=== PATIENT | female | born 1960 | race American Indian/Alaskan Native ===

== ENCOUNTER 2017-11-03 16:19 | Emergency (ER) | payer OTHER ==
[2017-11-03 16:42] VITALS: RESP 18
[2017-11-03] MEDS ORDERED: Sodium Chloride 0.9% 1,000 ML IV ONE (16:57)
[2017-11-03] MEDS ORDERED: Sodium Chloride 0.9% 1,000 ML ONE (17:30)
[2017-11-03 17:36] LABS: BASO % 0.5 % (0.0-2.0); EOS # 0.1 K/uL (0.0-0.7); EOS % 1.1 % (0.0-4.0); LYMPH # 1.1 K/uL (1.0-4.3); MEAN CELL VOLUME 74.1 fL (81.0-99.0); MEAN CORPUSCULAR HEMOGLOBIN 23.7 pg (27.0-31.0); MEAN PLATELET VOLUME 10.4 fL (7.2-11.7); MONO # 1.5 K/uL (0.0-0.8); MONO % 17.2 % (0.0-10.0); NEUT % 68.2 % (50.0-75.0); NRBC % 0.5 % (0.0-2.0); RBC 6.29 Mil/uL (3.80-5.20); RED CELL DISTRIBUTION WIDTH 19.2 % (11.5-14.5); WHITE BLOOD COUNT 8.8 K/uL (4.8-10.8)
[2017-11-03 17:37] LABS: HEMOGLOBIN 14.9 g/dL (11.0-16.0)
[2017-11-03 17:39] LABS: SQUAMOUS EPITHIAL 2 /hpf (0-5); URINE BACTERIA RARE (<OCC); URINE BILIRUBIN NEGATIVE (NEGATIVE); URINE CLARITY Clear (Clear); URINE COLOR Yellow (YELLOW); URINE GLUCOSE (UA) NORMAL (Normal); URINE LEUKOCYTE ESTERASE NEG Leu/uL (Negative); URINE PROTEIN 2+ mg/dL (NEGATIVE)
[2017-11-03 17:41] LABS: URINE BLOOD TRACE (NEGATIVE)
[2017-11-03 18:01] LABS: BARBITURATES, UR NEGATIVE (NEGATIVE); BENZODIAZEPINES, UR NEGATIVE (NEGATIVE); PHENCYCLIDINE, UR NEGATIVE (NEGATIVE)
[2017-11-03 18:28] LABS: CALCIUM 8.9 mg/dl (8.6-10.4)
--- NOTE | 2017-11-03 18:29 | C.PDOC ---
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 Patient has been aggressively diuresed by Dr. Pa for stage 4 CHF. In February 2017, cardiac echo showed global hypokinesis, EJF 20%. Time Seen by Provider: 11/03/17 16:52 Chief Complaint (Nursing): Syncope History Per: Patient History/Exam Limitations: no limitations Onset/Duration Of Symptoms: Hrs Current Symptoms Are (Timing): Still Present Activity At Onset Of Symptoms: Sitting Past Medical History Reviewed: Historical Data, Nursing Documentation, Vital Signs Vital Signs: Last Vital Signs Temp 97.9 F 11/03/17 20:49 Pulse 84 11/03/17 20:49 Resp 18 11/03/17 20:49 BP 119/80 11/03/17 20:49 Pulse Ox 97 11/03/17 20:49 - Medical History PMH: CHF, COPD, HTN, Pneumonia Surgical History: Cholecystectomy Family History: States: No Known Family Hx - Social History Hx Alcohol Use: Yes (Occ. Vodka) Hx Substance Use: No - Immunization History Hx Tetanus Toxoid Vaccination: No Hx Influenza Vaccination: No Hx Pneumococcal Vaccination: Yes Review Of Systems Except As Marked, All Systems Reviewed And Found Negative. Neurological: Positive for: Other (syncope) Physical Exam - Physical Exam Appears: Non-toxic, No Acute Distress Skin: Warm, Dry Head: Atraumatic, Normacephalic Eye(s): bilateral: Normal Inspection Nose: Normal Oral Mucosa: Moist Neck: Normal ROM, Supple Chest: Symmetrical Cardiovascular: Rhythm Regular, Other (euvolemic) Respiratory: Normal Breath Sounds, No Rales, No Rhonchi, No Wheezing Gastrointestinal/Abdominal: Normal Exam, Soft, No Tenderness, No Guarding, No Rebound Extremity: Normal ROM Neurological/Psych: Oriented x3, Normal Speech, Normal Cognition ED Course And Treatment - Laboratory Results Result Diagrams: 11/03/17 17:26 11/03/17 18:07 Lab Interpretation: Abnormal (trop 0.191 H, creat stable c/w 06/21) ECG: Interpreted By Hi ECG Rhythm: Sinus Rhythm ECG Interpretation: Normal Rate From EC O2 Sat by Pulse Oximetry: 100 (RA) Pulse Ox Interpretation: Normal - Radiology CXR: Interpreted by Me CXR Interpretation: Yes: No Acute Disease Reevaluation Time: 20:18 Reassessment Condition: Unchanged - Physician Consult Information Outcome Of Conversation: 2015: d/w Dr. Pa- PMD- ok to d/c home, appriates mild elevated trop. pt euvolemic. 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 Plan: EKG BNP CMP Troponin Drug Screen CBC CXR One View Glucose, POC Aspirin 325mg PO Lovenox 80mg SC NaCl IV Fluids Urinalysis Disposition Doctor Will See Patient In The: Office Counseled Patient/Family Regarding: Studies Performed, Diagnosis - Disposition Referrals: Ryan Pa MD [Staff Provider] - Disposition: HOME/ ROUTINE Disposition Time: 20:19 Condition: GOOD Additional Instructions: continue normal routine avoid excess fluids which may worsten your CHF Follow-up with Dr. Pa Instructions: Syncope (Fainting), Heart Failure, Adult, Heart Disease in Women (DC) Forms: [employer] ([place]ian) - Clinical Impression Clinical Impression: Syncope, NSTEMI (non-ST elevated myocardial infarction), CHF (congestive heart failure), NYHA class IV - Scribe Statement The provider has reviewed the documentation as recorded by the Scribe (Jonathan Lugo) Provider Attestation: All medical record entries made by the Scribe were at my direction and personally dictated by me. I have reviewed the chart and agree that the record accurately reflects my personal performance of the history, physical exam, medical decision making, and the department course for this patient. I have also personally directed, reviewed, and agree with the discharge instructions and disposition.
[2017-11-03 18:34] LABS: OPIATES, UR NEGATIVE (NEGATIVE)
--- NOTE | 2017-11-03 18:49 | RAD ---
PROCEDURE: CHEST RADIOGRAPH, 1 VIEW HISTORY: SOB COMPARISON: None available. FINDINGS: LUNGS: Clear. PLEURA: No pneumothorax or pleural fluid seen. CARDIOVASCULAR: Cardiomegaly. No congestive change. AICD. OSSEOUS STRUCTURES: No significant abnormalities. VISUALIZED UPPER ABDOMEN: Normal. OTHER FINDINGS: None. IMPRESSION: No acute infiltrate. No congestive change. AICD and cardiomegaly
[2017-11-03 19:06] LABS: ALB/GLOB RATIO 0.8 (1.0-2.1); ALBUMIN 3.7 g/dL (3.5-5.0); TROPONIN I 0.191 ng/mL (0.00-0.120)
[2017-11-03] MEDS ORDERED: Enoxaparin 40 mg Syringe SC STA (19:31)
[2017-11-03] MEDS ORDERED: Enoxaparin 80 mg Syringe ONE (19:38)
[2017-11-03 20:50] VITALS: BP 119/80; PULSE 84; TEMP 97.9
[2017-11-03 22:02] VITALS: O2SAT 100
--- NOTE | 2017-11-06 15:08 | CARD ---
APPROVED REPORT EKG Measurement Heart [id number] <Conclusion> Sinus rhythm with 1st degree AV block Biatrial enlargement Left axis deviation Left ventricular hypertrophy with QRS widening and repolarization abnormality Inferior infarct, age undetermined Anterolateral infarct, age undetermined Abnormal ECG
== END 2017-11-03 20:56 | disposition home or self-care (01) ==
LOC: C.ER 16:19 → UNDOADMIN 19:33 → C.9E 19:33 → C.ER 20:56
DX: R55 Syncope and collapse (principal); I21.4 Non-ST elevation (NSTEMI) myocardial infarction; I50.9 Heart failure, unspecified
CPT/HCPCS: 71045; 80053; 81001; 82948; 83880; 84484; 85025; 93005; 96360; 99285; G0480; J7030

== ENCOUNTER 2018-03-01 05:56 | Emergency (ER) | payer OTHER ==
[2018-03-01 06:09] VITALS: BP 153/94; PULSE 80; RESP 20; TEMP 98.2; O2SAT 97
--- NOTE | 2018-03-01 06:24 | C.PDOC ---
History Of Present Illness 57 year old female presents to the ED complaining of left eyelid swelling for the last 3 days. She reports she was seen by PMD who prescribed Tobramycin but she notes no relief. She denies any vision changes, or any other complaints. Time Seen by Provider: 03/01/18 06:21 Chief Complaint (Nursing): Eye Problem History Per: Patient History/Exam Limitations: no limitations Onset/Duration Of Symptoms: Days Current Symptoms Are (Timing): Still Present Quality: "Pain" Associated Symptoms: Discharge From Eye. denies: Decreased Vision Past Medical History Reviewed: Historical Data, Nursing Documentation, Vital Signs Vital Signs: Last Vital Signs Temp 98.2 F 03/01/18 06:04 Pulse 80 03/01/18 06:04 Resp 20 03/01/18 06:04 BP 153/94 H 03/01/18 06:04 Pulse Ox 97 03/01/18 06:04 - Medical History PMH: Asthma, CHF, COPD, HTN, Pneumonia Surgical History: Cholecystectomy Family History: States: No Known Family Hx - Social History Hx Alcohol Use: Yes Hx Substance Use: No - Immunization History Hx Tetanus Toxoid Vaccination: No Hx Influenza Vaccination: No Hx Pneumococcal Vaccination: No Review Of Systems Except As Marked, All Systems Reviewed And Found Negative. Eyes: Positive for: Eyelid Inflammation. Negative for: Vision Change Physical Exam - Physical Exam Appears: Non-toxic Skin: Warm, Dry Head: Normacephalic Eye(s): bilateral: PERRL, EOMI, right: Normal Inspection, left: Eyelid Inflammation (No evidence of periorbital cellulitis. Stye noted ) Neck: Normal ROM Chest: Symmetrical Extremity: Normal ROM Neurological/Psych: Oriented x3, Normal Speech Gait: Steady ED Course And Treatment O2 Sat by Pulse Oximetry: 97 (RA) Pulse Ox Interpretation: Normal Medical Decision Making Medical Decision Making: stye no e/o of conjunctival injection or periorbital cellultis. Patient examined. Patient instructed on strict return precautions. advise outpt fu with optho. agrees to see optho. Disposition - Disposition Referrals: Ken Iraheta MD [Staff Provider] - Disposition: HOME/ ROUTINE Disposition Time: 06:30 Condition: STABLE Additional Instructions: please follow up with your doctor/clinic. return to er with worsening symptoms or concerns. Instructions: Pau (Buddydeolum) Forms: [facility] (Citizen Of [place]) - Clinical Impression Clinical Impression: Pau Linton Statement The provider has reviewed the documentation as recorded by the Scribe Alissa Manley All medical record entries made by the Waqasibmayank were at my direction and personally dictated by me. I have reviewed the chart and agree that the record accurately reflects my personal performance of the history, physical exam, medical decision making, and the department course for this patient. I have also personally directed, reviewed, and agree with the discharge instructions and disposition.
== END 2018-03-01 06:33 | disposition home or self-care (01) ==
LOC: C.ER 05:56
DX: H00.016 Hordeolum externum left eye, unspecified eyelid (principal)